=== PATIENT | female | born 1970 | race Two or more races ===

== ENCOUNTER 2017-06-14 17:44 | Emergency (ER) | payer OTHER ==
[2017-06-14] MEDS ORDERED: HYDROcodone/ACETAMIN 5-325 MG* 1 TAB PO ONE (20:27)
[2017-06-14] MEDS ORDERED: LORazepam INJ* 2 MG/ML 1 ML VIAL IV ONE (20:27)
[2017-06-14 21:18] LABS: Hematocrit 40 % (35-47); Hemoglobin 13.9 g/dl (12.0-16.0); Mean Corpuscular HGB Conc 34 g/dl (31-36); Mean Corpuscular Hemoglobin 30 pg (27-31); Mean Corpuscular Volume 88 fL (80-97); Mean Platelet Volume 7 um3 (7.4-10.4); Red Blood Count 4.61 10^6/ul (4.0-5.4); Red Cell Distribution Width 13 % (10.5-15); White Blood Count 9.4 10^3/ul (3.5-10.8)
[2017-06-14 22:09] VITALS: BP 162/76
[2017-06-15] LABS: Erythrocyte Sed Rate 12 mm/Hr (0-14)
--- NOTE | 2017-06-16 17:56 | ED ---
Raoul Cruz Thomas, scribed for Mumtaz Sheppard MD on 06/14/17 at 2038 . Headache - HPI Summary HPI Summary: The patient is a 46 y/o F presenting to the ED c/o episodes of headaches that last about an hour and have been present over the last three days. Her last headache episode began during triage and it has mostly resolved by time of examination. The headache is located on her bilateral temples. She says that sometimes she almost falls down secondary to the pain. She rates the pain of these headache episodes 5/10. The headache is aggravated by positional change and is alleviated by nothing. She has been treating the headaches with Excedrin Migraine, which she last took three hours ago. She additionally c/o nausea, photophobia, and blurry vision (during the headache episodes). She denies vomiting. She does not take any daily medication. She does not have a history of headaches. She is accompanied by her daughter who acts as an accounting associate for this exchange. Her PMD is Dr. Swanson. - History Of Current Complaint Chief Complaint: EDHeadache Stated Complaint: HEADACHE/N/LOSS OF VISION Time Seen by Provider: 06/14/17 20:14 Hx Obtained From: Patient, Family/Denture Waxer - daughter is present, who acts as an interpretere Onset/Duration: Started days ago - onset of episodes is 3 days ago, Still Present Timing: Intermittent, Lasting: - about an hour Location of Headache: Temporal - bilateral Aggravating Factor: Position Change Allevating Factors: Nothing Associated Signs And Symptoms: Nausea, Other (Noted In Comments) - Photophobia; NEGATIVE: vomiting - Allergies/Home Medications Allergies/Adverse Reactions: Allergies Allergy/AdvReac Type Severity Reaction Status Date / Time No Known Allergies Allergy Verified 04/30/15 19:03 PMH/Surg Hx/FS Hx/Imm Hx Previously Healthy: Yes Endocrine/Hematology History: Denies: Hx Diabetes Cardiovascular History: Denies: Hx Hypertension - Surgical History Surgery Procedure, Year, and Place: CHOLECYSTECTOMY - Immunization History Date of Tetanus Vaccine: unknown Infectious Disease History: No Infectious Disease History: Denies: Traveled Outside the [place] in Last 30 Days - Family History Known Family History: Negative: Hypertension, Diabetes - Social History Lives: With Family Alcohol Use: None Hx Substance Use: No Substance Use Type: Reports: None Hx Tobacco Use: No Smoking Status (MU): Never Smoked Tobacco Review of Systems Negative: Fever Positive: Photophobia, Blurred Vision - during episodes of headaches Positive: Nausea. Negative: Vomiting Positive: Headache - episodes of headaches All Other Systems Reviewed And Are Negative: Yes Physical Exam Triage Information Reviewed: Yes Vital Signs On Initial Exam: Initial Vitals Temp Pulse Resp BP Pulse Ox 97.3 F 72 18 158/81 99 06/14/17 17:54 06/14/17 17:54 06/14/17 17:54 06/14/17 17:54 06/14/17 17:54 Vital Signs Reviewed: Yes Appearance: Positive: Well-Appearing, No Pain Distress, Obese Skin: Positive: Warm, Skin Color Reflects Adequate Perfusion, Dry Head/Face: Positive: Normal Head/Face Inspection Eyes: Positive: Normal ENT: Positive: Normal ENT inspection Neck: Positive: Supple, Nontender Respiratory/Lung Sounds: Positive: Clear to Auscultation, Breath Sounds Present Cardiovascular: Positive: RRR Abdomen Description: Positive: Nontender, Soft Bowel Sounds: Positive: Present Musculoskeletal: Positive: Normal Neurological: Positive: Other - She is tender paracervically. There are no meningeal signs. There is mild tenderness to her temples bilaterally. No cords are palpated. Psychiatric: Positive: Normal, Affect/Mood Appropriate - Virgilio Coma Scale Coma Scale Total: 15 Diagnostics - Vital Signs Vital Signs Temp Pulse Resp BP Pulse Ox 06/14/17 18:35 98.7 F 72 18 181/71 98 06/14/17 17:54 97.3 F 72 18 158/81 99 - Laboratory Lab Results: Lab Results 06/14/17 06/14/17 Range/Units 21:03 21:03 WBC 9.4 (3.5-10.8) 10^3/ul RBC 4.61 (4.0-5.4) 10^6/ul Hgb 13.9 (12.0-16.0) g/dl Hct 40 (35-47) % MCV 88 (80-97) fL MCH 30 (27-31) pg MCHC 34 (31-36) g/dl RDW 13 (10.5-15) % Plt Count 306 (150-450) 10^3/ul MPV 7 L (7.4-10.4) um3 Neut % (Auto) 67.7 (38-83) % Lymph % (Auto) 24.9 L (25-47) % Scott % (Auto) 5.9 (1-9) % Eos % (Auto) 0.8 (0-6) % Baso % (Auto) 0.7 (0-2) % Absolute Neuts (auto) 6.3 (1.5-7.7) 10^3/ul Absolute Lymphs (auto) 2.3 (1.0-4.8) 10^3/ul Absolute Monos (auto) 0.6 (0-0.8) 10^3/ul Absolute Eos (auto) 0.1 (0-0.6) 10^3/ul Absolute Basos (auto) 0.1 (0-0.2) 10^3/ul Absolute Nucleated RBC 0 10^3/ul Nucleated RBC % 0 ESR 12 (0-14) mm/Hr Carbon Monoxide Screen < 4 (<4.0) % Result Diagrams: 06/14/17 21:03 Lab Statement: Any lab studies that have been ordered have been reviewed, and results considered in the medical decision making process. Headache Course/Dx - Course Course Of Treatment: Ms. Florian presented with intermittent MCCRAY's for a couple weeks. She improved with medications here and I think these are tension MCCRAY's and will treat her accordingly. - Diagnoses Provider Diagnoses: Tension headache Discharge - Discharge Plan Condition: Stable Disposition: HOME Prescriptions: LORazepam TAB(*) [Ativan 1 MG TAB (*)] 1 mg PO Q6H PRN #10 tab MDD 4 PRN Reason: Pain Patient Education Materials: Tension Headache (ED) Referrals: Rosa Swanson MD [Primary Care Provider] - 3 Days Additional Instructions: Follow up with your primary care provider in 2-3 days. Return to the emergency department for any new or worsening symptoms. The documentation as recorded by the Raoul good Thomas accurately reflects the service I personally performed and the decisions made by me, Mumtaz Sheppard MD.
== END 2017-06-14 22:14 | disposition home or self-care (01) ==
LOC: ED 17:44
DX: G44.209 Tension-type headache, unspecified, not intractable (principal); R11.0 Nausea; H53.149 Visual discomfort, unspecified; H53.8 Other visual disturbances
CPT/HCPCS: 36415; 82375; 85025; 85652; 96374; 99284; J2060

== ENCOUNTER 2017-06-15 11:39 | Emergency (ER) | payer OTHER ==
--- NOTE | 2017-06-15 12:22 | RAD ---
HISTORY: Headache with blurred vision COMPARISONS: None TECHNIQUE: Multiple contiguous axial CT scans were obtained of the head without intravenous contrast. FINDINGS: HEMORRHAGE/INFARCT: There is no hemorrhage or acute infarct. MASSES/SHIFT: There is no mass or shift. EXTRA-AXIAL SPACES: There are no extra-axial fluid collections. SULCI AND VENTRICLES: The sulci and ventricles are normal in size and position for the patient's stated age. CEREBRUM: There are no focal parenchymal abnormalities. BRAINSTEM: There are no focal parenchymal abnormalities. CEREBELLUM: There are no focal parenchymal abnormalities. VESSELS: The vessels are grossly normal. PARANASAL SINUSES: The paranasal sinuses are clear. ORBITS: The orbits are unremarkable. BONES AND SOFT TISSUE: No bone or soft tissue abnormalities are noted. OTHER: None IMPRESSION: NO ACUTE INTRACRANIAL PATHOLOGY.
--- NOTE | 2017-06-15 13:53 | UC ---
Head Injury HPI - HPI Summary HPI Summary: 3 days of headache had some nausea and vomiting at home---had continued head ache this morning she called pcp who advised here to have a ct scan - History Of Current Complaint Chief Complaint: EDHeadache Stated Complaint: HEADACHE Time Seen by Provider: 06/15/17 13:25 Hx Obtained From: Patient ?: No Onset/Duration: Gradual Onset - waxing and waneing, Lasting Days - 3 Severity Currently: Moderate Severity Initially: Moderate Pain Intensity: 5 Pain Scale Used: 0-10 Numeric Character: Throbbing Aggravating Factor(s): Nothing Alleviating Factor(s): Other - Ativan and hydrodcodone Associated Signs And Symptoms: Positive: Nausea, Vomiting - Allergies/Home Medications Allergies/Adverse Reactions: Allergies Allergy/AdvReac Type Severity Reaction Status Date / Time No Known Allergies Allergy Verified 04/30/15 19:03 PMH/Surg Hx/FS Hx/Imm Hx Previously Healthy: No - Surgical History Surgical History: Yes Surgery Procedure, Year, and Place: CHOOLECYSTECTOMY - Family History Known Family History: Positive: None - Social History Occupation: Unemployed Lives: With Family Alcohol Use: None Substance Use Type: None Smoking Status (MU): Never Smoked Tobacco Review of Systems Constitutional: Negative Skin: Negative Eyes: Negative ENT: Negative Respiratory: Negative Cardiovascular: Negative Gastrointestinal: Vomiting, Nausea Genitourinary: Negative Motor: Negative Neurovascular: Negative Musculoskeletal: Negative Neurological: Headache - both sides of head Psychological: Negative Is Patient Immunocompromised?: No All Other Systems Reviewed And Are Negative: Yes Physical Exam Triage Information Reviewed: Yes Appearance: Well-Appearing, Well-Nourished, Pain Distress - mild Vital Signs: Initial Vital Signs Temp 97.8 F 06/15/17 11:44 Pulse 69 06/15/17 11:44 Resp 15 06/15/17 11:44 BP 141/80 06/15/17 11:44 Pulse Ox 99 06/15/17 11:44 Vital Signs Reviewed: Yes Eye Exam: Normal Eyes: Positive: Conjunctiva Clear, Other: - perrla, eomi ENT Exam: Normal ENT: Positive: Normal ENT inspection, Hearing grossly normal, Pharynx normal, TMs normal. Negative: Nasal congestion, Nasal drainage, Trismus, Muffled/ hoarse voice Dental Exam: Normal Neck exam: Normal Neck: Positive: Supple, Nontender, No Lymphadenopathy Respiratory Exam: Normal Respiratory: Positive: Chest non-tender, Lungs clear, Normal breath sounds, No respiratory distress, No accessory muscle use Cardiovascular Exam: Normal Cardiovascular: Positive: RRR, No Murmur, Pulses Normal, Brisk Capillary Refill Abdominal Exam: Normal Abdomen Description: Positive: Nontender, No Organomegaly, Soft Bowel Sounds: Positive: Present Musculoskeletal Exam: Normal Musculoskeletal: Positive: Strength Intact, ROM Intact, No Edema Neurological Exam: Normal Neurological: Positive: Alert, Muscle Tone Normal Psychological Exam: Normal Psychological: Positive: Normal Response To Family Skin Exam: Normal Diagnostics - Laboratory Diagnostic Studies Completed/Ordered: CT and CTA Negative Re-Evaluation - Re-Evaluation First Eval Change: Improved - Patient slept soundly and was easy to arrouse for reassessment while family was gone this afternoon Head Injury Course/Dx - Course Course Of Treatment: zofran, rest, nsaids, prn ativan follow with Dr. Carter - Differential Dx/Diagnosis Provider Diagnoses: Tension Headache - Physician Notification/Consults Discussed Patient Care With: Cornel Saldivar Discharge - Discharge Plan Condition: Stable Disposition: HOME Prescriptions: Ondansetron ODT TAB* [Zofran 4 MG Odt TAB*] 4 mg PO Q6H PRN #10 tab.odt PRN Reason: nausea/vomiting Patient Education Materials: Tension Headache (ED) Referrals: Rosa Swanson MD [Primary Care Provider] - 2 Days
[2017-06-15] MEDS ORDERED: NS 0.9% 1000 ML* 1,000 ML IV ONE (14:05)
[2017-06-15] MEDS ORDERED: Ondansetron INJ* 2 MG/ML VIAL IV ONE (14:06)
[2017-06-15] MEDS ORDERED: Ketorolac INJ* 30 MG/ML 1 ML VIAL IV PUSH ONE (14:06)
[2017-06-15 15:38] LABS: Hematocrit 39 % (35-47); Hemoglobin 13.2 g/dl (12.0-16.0); Mean Corpuscular HGB Conc 34 g/dl (31-36); Mean Corpuscular Hemoglobin 30 pg (27-31); Mean Corpuscular Volume 88 fL (80-97); Mean Platelet Volume 7 um3 (7.4-10.4); Red Cell Distribution Width 13 % (10.5-15); White Blood Count 7.7 10^3/ul (3.5-10.8)
[2017-06-15 15:56] LABS: Albumin 3.7 g/dL (3.2-5.2); C Reactive Protein 2.93 mg/L (< 5.00); Calcium 8.9 mg/dL (8.6-10.3); EGFR African American 170.1 (>60); EGFR Non-African American 132.2 (>60); Globulin 3.7 g/dL (2-4); Potassium 3.5 mmol/L (3.5-5.0); Total Bilirubin 0.5 mg/dL (0.2-1.0); Total Protein 7.4 g/dL (6.4-8.9)
[2017-06-15] MEDS ORDERED: Iohexol 350* (CONTRAST) 500 ML MDV IV ONE (17:26)
--- NOTE | 2017-06-15 18:07 | RAD ---
INDICATION: Headache. COMPARISON: Noncontrast head CT of the same date. TECHNIQUE: Multidetector CT images were obtained from the skull base to the vertex of the head with 60 mL Omnipaque 350 IV contrast. Arterial phase of enhancement. Multiplanar reformation including maximum intensity projection. 3-D arterial volume rendering. Stenosis estimations based on denominator of distal arterial diameter. HEAD ANGIOGRAM REPORT: Unremarkable intracranial internal carotid arteries as well as the M1 and M2 segments of the middle cerebral arteries and the A1 and A2 segments of the anterior cerebral arteries. Patent anterior communicating artery. Codominant patent vertebral arteries both contribute to the basilar artery. Unremarkable basilar artery and cerebellar artery origins. Patent bilateral posterior cerebral arteries are supplied primarily by the posterior circulation with normal variant hypoplastic posterior communicating arteries. No intracranial aneurysm or vascular malformation evident. No arterial phase enhancing lesions evident. IMPRESSION: No large vessel intracranial arterial occlusion, stenosis, dissection, or aneurysm. Negative CT angiogram of the head. CPT II: CPT II Codes: 3100F
[2017-06-15 18:41] VITALS: BP 126/74
== END 2017-06-15 18:40 | disposition home or self-care (01) ==
LOC: ED 11:39
DX: G44.209 Tension-type headache, unspecified, not intractable (principal); R11.2 Nausea with vomiting, unspecified; Z90.49 Acquired absence of other specified parts of digestive tract
CPT/HCPCS: 36415; 70450; 70496; 80053; 85025; 86140; 96361; 96374; 96375; 99283; J1885; J2405; Q9967

== ENCOUNTER 2017-06-28 20:11 | Inpatient (IN) | payer OTHER ==
[2017-06-28] MEDS ORDERED: Al Hydrox/Mg Hydrox/Simet LIQ* 30 ML UDC PO ONE (21:46)
[2017-06-28] MEDS ORDERED: SCOP/HYOS/ATR/PB(NF) 10 ML UDC PO ONE (21:47)
[2017-06-28] MEDS ORDERED: Famotidine TAB* 20 MG PO ONE (21:49)
[2017-06-28 22:05] LABS: Hematocrit 40 % (35-47); Hemoglobin 13.5 g/dl (12.0-16.0); Mean Corpuscular HGB Conc 34 g/dl (31-36); Mean Corpuscular Hemoglobin 30 pg (27-31); Mean Corpuscular Volume 87 fL (80-97); Mean Platelet Volume 7 um3 (7.4-10.4); Red Blood Count 4.56 10^6/ul (4.0-5.4); Red Cell Distribution Width 13 % (10.5-15); White Blood Count 26.2 10^3/ul (3.5-10.8)
[2017-06-28 22:11] LABS: Add Diff/Slide Review? Slide Review Added; Comments Flag Yes
[2017-06-28 22:48] LABS: ALT 18 U/L (7-52); AST 16 U/L (13-39); Albumin 3.8 g/dL (3.2-5.2); Alkaline Phosphatase 110 U/L (34-104); Anion Gap 9 mmol/L (2-11); BUN/Creatinine Ratio 18.4 (8-20); Blood Urea Nitrogen 9 mg/dL (6-24); C Reactive Protein 57.42 mg/L (< 5.00); CO2 Carbon Dioxide 25 mmol/L (22-32); Calcium 9.4 mg/dL (8.6-10.3); Chloride 102 mmol/L (101-111); EGFR African American 174.1 (>60); EGFR Non-African American 135.4 (>60); Globulin 3.8 g/dL (2-4); Glucose 174 mg/dL (70-100); Lipase < 10 U/L (11.0-82.0); Magnesium 2.5 mg/dL (1.9-2.7); Potassium 3.7 mmol/L (3.5-5.0); Sodium 136 mmol/L (133-145); Total Protein 7.6 g/dL (6.4-8.9)
[2017-06-28] MEDS ORDERED: Lidocaine 2% VISCOUS* 15 ML UDC ONE (23:03)
[2017-06-28] MEDS ORDERED: Lidocaine 2% VISCOUS* 15 ML UDC PO ONE (23:10)
[2017-06-28 23:31] LABS: Urine Bacteria 1+ (Absent); Urine Bilirubin Negative (Negative); Urine Glucose Negative (Negative); Urine Nitrite Negative (Negative)
[2017-06-28] MEDS ORDERED: Morphine INJ* 4 MG/ML 1 ML CARPUJECT IV ONE (23:41)
[2017-06-28] MEDS ORDERED: cefTRIAXone(*) 1 GM in NS 0.9% 50 ML* 50 ML IVPB ONE (23:41)
[2017-06-29] MEDS ORDERED: Iohexol 300* (CONTRAST) 10 ML SDV IV ONE (02:51)
[2017-06-29] MEDS ORDERED: Morphine INJ* 4 MG/ML 1 ML CARPUJECT IV ONE (05:14)
--- NOTE | 2017-06-29 07:36 | RAD ---
INDICATION: Shortness of breath and abdominal pain COMPARISON: Chest x-ray April 30, 2015 TECHNIQUE: Single AP view of the chest and 2 view radiograph of the abdomen were obtained. FINDINGS: The heart and mediastinum exhibit normal size and contour. There is mild cardiomegaly relative to the prior chest x-ray. The pulmonary vasculature looks engorged and mildly indistinct. There is no large focal or lobar consolidation. There is no definite costophrenic angle blunting. The gas and stool pattern is normal overlying the abdomen. There is no evidence of free air. Surgical clips at the gallbladder fossa are consistent with a history of cholecystectomy. Visualized bones are normal for the patient's age. IMPRESSION: 1. IN THE CORRECT CLINICAL SETTING CHEST X-RAY FINDINGS COULD BE COMPATIBLE WITH CARDIOGENIC PULMONARY EDEMA. 2. NO ACUTE ABDOMINAL ABNORMALITY.
--- NOTE | 2017-06-29 08:19 | RAD ---
CLINICAL HISTORY: Right lower quadrant pain and emesis. Relevant surgical history includes cholecystectomy. COMPARISON: None TECHNIQUE: Multiple contiguous axial CT scans were obtained of the abdomen and pelvis after the administration of intravenous contrast. Coronal and sagittal multiplanar reformations are submitted for review. Prior to CT imaging of the abdomen the patient received 100 mL of Omnipaque 300. Approximately 90 minutes later the patient underwent CT of the pelvis. FINDINGS: VISUALIZED LUNG BASES: The visualized lung bases are grossly clear. There is no pleural effusion. ABDOMEN: The liver, spleen, pancreas and adrenal glands are grossly normal in appearance. The gallbladder is surgically absent. The kidneys are normal in appearance without focal mass, calcification or signs of hydronephrosis. The oral contrast has progressed as far as the descending colon on the abdominal CT and the rectum on the pelvic CT.. The small and large bowel is not distended. There is mild thickening of the terminal ileum up to the junction with the cecum measuring up to 5 mm in wall thickness. There is inflammatory changes at the base of the cecum including infiltration of the fat, trace fluid and a 2.2 x 2.8 cm soft tissue nodule just anterior to the psoas muscle. This latter finding may be the right ovary. In addition there are scattered top normal lymph nodes along the mesenteric root of the right lower quadrant. The appendix is likely identified measuring 5 mm in diameter and not specifically exhibiting signs of appendicitis. There is no gross retroperitoneal lymphadenopathy. The abdominal aorta is normal in course and diameter. The uterus is surgically absent. In the left upper abdomen there is a fluid density structure measuring 2.7 cm possibly the left ovary with a follicle. There are no sinister bone lesions in the visualized bones. IMPRESSION: 1. There is focal inflammatory change at the base of the cecum with mild wall thickening of the terminal ileum. The appendix appears normal. An infectious or inflammatory terminal ileitis is favored with epiploic appendicitis considered less likely. 2. Additional chronic, degenerative and postsurgical changes described in body the report. 3. The CT of the abdomen was acquired at [address] of the pelvis was acquired at 0418 hours.
--- NOTE | 2017-06-29 09:32 | ED ---
Mario Cruz Rebecca, scribed for Nicho Barber MD on 06/28/17 at 2133 . Abdominal Pain/Female - HPI Summary HPI Summary: Pt is a 46 y/o F who presents to ED c/o diffuse abdominal pain. Pain began yesterday and has gradually worsened. Currently, pain is moderate, ranked 4/10. Sx aggravated and alleviated by nothing. Additionally c/o MCCRAY, dysuria, increased urinary frequency, vomiting and constipation. Constipation began 3 days ago and she vomited 3x earlier today. She has been taking Tylenol to treat the MCCRAY. Notes she has not eaten in 3 days. PSHx cholecystectomy due to gallstones. - History of Current Complaint Chief Complaint: EDAbdPain Stated Complaint: ABD PAIN Hx Obtained From: Patient Onset/Duration: Lasting Days - 2 days, Still Present Severity Currently: Moderate Pain Intensity: 4 Pain Scale Used: 0-10 Numeric Location: Diffuse Radiates: No Character: Burning Alleviating Factor(s): Nothing Associated Signs and Symptoms: Positive: Constipation, Vomiting Allergies/Adverse Reactions: Allergies Allergy/AdvReac Type Severity Reaction Status Date / Time No Known Allergies Allergy Verified 04/30/15 19:03 PMH/Surg Hx/FS Hx/Imm Hx Cardiovascular History: Reports: Hx Hypertension GI History: Reports: Hx Gastroesophageal Reflux Disease History: Reports: Hx Kidney Stones - Surgical History Surgery Procedure, Year, and Place: CHOOLECYSTECTOMY - Immunization History Date of Tetanus Vaccine: unknown Infectious Disease History: No Infectious Disease History: Denies: Traveled Outside the [place] in Last 30 Days - Family History Known Family History: Positive: Other - [place] - Social History Alcohol Use: None Hx Substance Use: No Substance Use Type: Reports: None Hx Tobacco Use: No Smoking Status (MU): Never Smoked Tobacco Review of Systems Positive: Abdominal Pain, Vomiting, Other - Constipation Positive: dysuria, frequency Positive: Headache All Other Systems Reviewed And Are Negative: Yes Physical Exam - Summary Physical Exam Summary: Appearance: Well-appearing, Well-nourished Skin: Warm Eyes: Normal ENT: Normal, moist mucous membranes Neck: Supple, nontender Respiratory: Clear to auscultation Cardiovascular: Normal Abdomen: Soft, generalized abdominal tenderness without rebound and guarding Bowel: Present Musculoskeletal: Normal, Strength/ROM Intact Neurological: Normal, Alert, Oriented to Person Psychiatric: Normal Triage Information Reviewed: Yes Vital Signs On Initial Exam: Initial Vitals Temp Pulse Resp BP Pulse Ox 99.1 F 80 16 129/66 97 06/28/17 20:22 06/28/17 20:22 06/28/17 20:22 06/28/17 20:22 06/28/17 20:22 Vital Signs Reviewed: Yes Diagnostics - Vital Signs Vital Signs Temp Pulse Resp BP Pulse Ox 06/28/17 20:22 99.1 F 80 16 129/66 97 - Laboratory Lab Results: Lab Results 06/28/17 06/28/17 06/28/17 Range/Units 21:59 21:59 21:59 WBC 26.2 H (3.5-10.8) 10^3/ul RBC 4.56 (4.0-5.4) 10^6/ul Hgb 13.5 (12.0-16.0) g/dl Hct 40 (35-47) % MCV 87 (80-97) fL MCH 30 (27-31) pg MCHC 34 (31-36) g/dl RDW 13 (10.5-15) % Plt Count 274 (150-450) 10^3/ul MPV 7 L (7.4-10.4) um3 Neut % (Auto) 89.8 H (38-83) % Lymph % (Auto) 5.7 L (25-47) % Person % (Auto) 4.3 (1-9) % Eos % (Auto) 0 (0-6) % Baso % (Auto) 0.2 (0-2) % Absolute Neuts (auto) 23.6 H (1.5-7.7) 10^3/ul Absolute Lymphs (auto) 1.5 (1.0-4.8) 10^3/ul Absolute Monos (auto) 1.1 H (0-0.8) 10^3/ul Absolute Eos (auto) 0 (0-0.6) 10^3/ul Absolute Basos (auto) 0.1 (0-0.2) 10^3/ul Absolute Nucleated RBC 0 10^3/ul Nucleated RBC % 0 INR (Anticoag Therapy) 1.25 H (0.89-1.11) APTT 28.4 (26.0-36.3) seconds Sodium 136 (133-145) mmol/L Potassium 3.7 (3.5-5.0) mmol/L Chloride 102 (101-111) mmol/L Carbon Dioxide 25 (22-32) mmol/L Anion Gap 9 (2-11) mmol/L BUN 9 (6-24) mg/dL Creatinine 0.49 L (0.51-0.95) mg/dL Est GFR ( Amer) 174.1 (>60) Est GFR (Non-Af Amer) 135.4 (>60) BUN/Creatinine Ratio 18.4 (8-20) Glucose 174 H (70-100) mg/dL Calcium 9.4 (8.6-10.3) mg/dL Magnesium 2.5 (1.9-2.7) mg/dL Total Bilirubin 0.60 (0.2-1.0) mg/dL AST 16 (13-39) U/L ALT 18 (7-52) U/L Alkaline Phosphatase 110 H (34-104) U/L C-Reactive Protein 57.42 H (< 5.00) mg/L Total Protein 7.6 (6.4-8.9) g/dL Albumin 3.8 (3.2-5.2) g/dL Globulin 3.8 (2-4) g/dL Albumin/Globulin Ratio 1.0 (1-3) Lipase < 10 L (11.0-82.0) U/L Beta HCG, Quant 1.58 mIU/mL Urine Color Urine Appearance Urine pH (5-9) Ur Specific [place] (1.010-1.030) Urine Protein (Negative) Urine Ketones (Negative) Urine Blood (Negative) Urine Nitrate (Negative) Urine Bilirubin (Negative) Urine Urobilinogen (Negative) Ur Leukocyte Esterase (Negative) Urine WBC (Auto) (Absent) Urine RBC (Auto) (Absent) Ur Squamous Epith Cells (Absent) Urine Bacteria (Absent) Urine Glucose (Negative) 06/28/ Range/Units 22:50 WBC (3.5-10.8) 10^3/ul RBC (4.0-5.4) 10^6/ul Hgb (12.0-16.0) g/dl Hct (35-47) % MCV (80-97) fL MCH (27-31) pg MCHC (31-36) g/dl RDW (10.5-15) % Plt Count (150-450) 10^3/ul MPV (7.4-10.4) um3 Neut % (Auto) (38-83) % Lymph % (Auto) (25-47) % Person % (Auto) (1-9) % Eos % (Auto) (0-6) % Baso % (Auto) (0-2) % Absolute Neuts (auto) (1.5-7.7) 10^3/ul Absolute Lymphs (auto) (1.0-4.8) 10^3/ul Absolute Monos (auto) (0-0.8) 10^3/ul Absolute Eos (auto) (0-0.6) 10^3/ul Absolute Basos (auto) (0-0.2) 10^3/ul Absolute Nucleated RBC 10^3/ul Nucleated RBC % INR (Anticoag Therapy) (0.89-1.11) APTT (26.0-36.3) seconds Sodium (133-145) mmol/L Potassium (3.5-5.0) mmol/L Chloride (101-111) mmol/L Carbon Dioxide (22-32) mmol/L Anion Gap (2-11) mmol/L BUN (6-24) mg/dL Creatinine (0.51-0.95) mg/dL Est GFR ( Amer) (>60) Est GFR (Non-Af Amer) (>60) BUN/Creatinine Ratio (8-20) Glucose (70-100) mg/dL Calcium (8.6-10.3) mg/dL Magnesium (1.9-2.7) mg/dL Total Bilirubin (0.2-1.0) mg/dL AST (13-39) U/L ALT (7-52) U/L Alkaline Phosphatase (34-104) U/L C-Reactive Protein (< 5.00) mg/L Total Protein (6.4-8.9) g/dL Albumin (3.2-5.2) g/dL Globulin (2-4) g/dL Albumin/Globulin Ratio (1-3) Lipase (11.0-82.0) U/L Beta HCG, Quant mIU/mL Urine Color Yellow Urine Appearance Cloudy Urine pH 7.0 (5-9) Ur Specific [place] 1.011 (1.010-1.030) Urine Protein Negative (Negative) Urine Ketones Negative (Negative) Urine Blood 1+ H (Negative) Urine Nitrate Negative (Negative) Urine Bilirubin Negative (Negative) Urine Urobilinogen Negative (Negative) Ur Leukocyte Esterase 3+ H (Negative) Urine WBC (Auto) 2+(11-20/hpf) H (Absent) Urine RBC (Auto) 2+(6-10/hpf) H (Absent) Ur Squamous Epith Cells Present H (Absent) Urine Bacteria 1+ H (Absent) Urine Glucose Negative (Negative) Result Diagrams: 06/28/17 21:59 06/28/17 21:59 Lab Statement: Any lab studies that have been ordered have been reviewed, and results considered in the medical decision making process. - Radiology CXR Xray Interpretation: Positive (See Comments) - Diffuse congestion, no consolidation. Radiology Interpretation Completed By: ED Physician Abd XR Xray Interpretation: No Acute Changes - Normal stool pattern, no evidence of obstruction, no dilated loops of bowel Radiology Interpretation Completed By: ED Physician - CT CT Abd/Pel CT Interpretation: Positive (See Comments) - Right lower quadrant inflammation. Appendicitis cannot be excluded but the pelvis is incompletely imaged. Persistent 3 x 1 cm left ovarian cyst. Consider further CT images of the pelvis. ED physician reviewed radiology report and agrees. CT Interpretation Completed By: Radiologist CT Abd/Pel #2 CT Interpretation: Positive (See Comments) - Appendicitis considered unlikely. Primary cecal and terminal ileal inflammation from infection or Crohn's disease , versus epiploic appendagitis is more likely. ED physician reviewed radiology report and agrees. CT Interpretation Completed By: Radiologist Re-Evaluation - Re-Evaluation First Eval Re-Evaluation Time: 02:19 Change: Unchanged Comment: Pt continues to be tender to palpation. Abdominal Pain Fem Course/Dx - Course Course Of Treatment: pt continues to have pain despite treatment in ED, admitted for further treatment, surgical consultation appreciated. - Diagnoses Provider Diagnoses: Ileitis - Provider Notifications Discussed Care Of Patient With: Rizwan Dan Time Discussed With Above Provider: 05:20 Instructed by Provider To: Other - Advised consult with surgery. Discussed care of pt with Dr. Bahena at 0524 who will look at the CT and call back. Discussed care of pt with Dr. Bahena at 0544 who suggested admission with surgical consultation and Abx on board. Discharge - Discharge Plan Condition: Stable Disposition: ADMITTED TO [facility] documentation as recorded by the Mario good Rebecca accurately reflects the service I personally performed and the decisions made by me, Nicho Barber MD.
[2017-06-29] MEDS ORDERED: Zosyn per Pharmacy* NOTE FOLLOW UP PRN (10:59)
[2017-06-29] MEDS ORDERED: ZOSYN 3.375 GM x ONE DOSE over 30 miuntes IVPB ×2 (11:00)
[2017-06-29] MEDS ORDERED: metroNIDAZOLE IV 500 MG/100ML* 500 MG/100 ML BAG IVPB SCH (11:00)
[2017-06-29] MEDS ORDERED: Ciprofloxacin 400MG IVPREMIX(* 400 MG/200 ML BAG IVPB SCH (11:00)
[2017-06-29] MEDS: Acetaminophen TAB* 325 MG PO PRN ×2 (11:05→20:00)
[2017-06-29] MEDS: Ondansetron INJ* 2 MG/ML VIAL IV PRN (12:06)
[2017-06-29] MEDS: NS 0.9% 1000 ML* 1,000 ML IV SCH ×3 (12:15→18:05)
[2017-06-29] MEDS ORDERED: NS 0.9% 1000 ML* 1,000 ML IV ONE ×2 (12:52→16:44)
[2017-06-29] MEDS ORDERED: Morphine INJ* 2 MG/ML 1 ML SYRINGE (TWO MG - NEW SYRINGE VERSION) IV PRN (12:52)
[2017-06-29] MEDS ORDERED: Acetaminophen TAB* 325 MG PO ONE (13:29)
[2017-06-29] MEDS ORDERED: Acetaminophen SUPP* 650 MG SUPP PR PRN (13:29)
[2017-06-29] MEDS: Heparin VIAL(*) 5000 UNITS/ML VIAL (FIVE THOUSAND) SUBCUT SCH ×2 (14:59→21:08)
[2017-06-29] MEDS: ZOSYN 3.375 GM Q8H per EXTENDED INFUSION IVPB SCH ×2 (16:36)
--- NOTE | 2017-06-29 17:36 | PN ---
Progress Note - Progress Note Date of Service: 06/29/17 Note: Brief Surgery Note: (full consult dictated) Patient seen with and examined by Dr. Bahena. History is somewhat limited by language barrier. Patient reports a 2-3 d hx of steady RLQ abd pain w/ assoc N& V. She has not eaten any solid food in the past 2-3 d. She has had a small BM this a.m. She admits to fever and chills. She has an associated headache which she also had on 06/14 (though at that time had no abd sx). She is s/p lap ward. PE: mod obese female in mild distress; uncomfortable to move. Abd: moderately severe, diffuse, RLQ tenderness w/o rebound, guarding, or rigidity. No palp mass. Labs: WBC 26 w/ L shift; glucose 174; CRP 57; Lactic acid 1.9; U/A noted CT A&P w/contrast: mild thickening of the terminal ileum and cecum most c/w infectious or inflammatory etiology; likely normal appendix, 5 mm w/o inflammatory changes. Imp: Terminal ileitis; unlikely acute appendicitis or acute surgical abdomen P: hospitalist admission for NPO, IVF, abx. Repeat labs; Serial surgical exams.
--- NOTE | 2017-06-29 18:57 | ED ---
I, Sandeep Silveira, scribed for Cornel Saldivar MD on 06/29/17 at 1723 . Progress - Progress Note Progress Note: The patient is a sign out from Dr. Barber because he requests that I consult with surgery. Mr. Armando Diaz, a PA from Dr. Law office, came to evaluate the patient and he does not think that the patient has appendicitis. Santos Joe and Dr. Bahena suspect distal ileitis. Therefore, they recommend admission to the hospitalist services. I discussed the case with Dr. Reyes, hospitalist, who will admit the patient for further workup and management. The patient is hemodynamically stable and alert and oriented x 3. Course/Dx - Diagnoses Provider Diagnoses: Abdominal pain The documentation as recorded by the Raoul good Thomas accurately reflects the service I personally performed and the decisions made by me, Cornel Saldivar MD.
--- NOTE | 2017-06-29 18:58 | HP ---
HISTORY AND PHYSICAL: DATE OF ADMISSION: 06/29/17 PRIMARY CARE PROVIDER: None. ATTENDING PHYSICIAN WHILE IN THE HOSPITAL: Dr. Richard Reyes* (report being dictated by Rashad Fenton NP). CHIEF COMPLAINT: 1. Right lower quadrant abdominal pain. 2. Chills. HISTORY OF PRESENT ILLNESS: Ms. Florian is a 46-year-old female patient, she has a history of GERD and history of nephrolithiasis, who really does not take many medications with exception of p.r.n. ibuprofen. She came into the ER last night with complaints of having chills, in addition to this having pain in the right lower quadrant. It has been constant for the last 3 days. It has been getting progressively worse with associated constipation, in addition to this, also having associated nausea with vomiting and decreased appetite. She describes the pain as a sharp, stabbing, intense pain. She says in addition to this, she has also been complaining of having a headache as well. It is not the worst headache of her life, but that she says that the abdominal pain is much worse than the headache. She came in, was evaluated in the ED for this. She denied having any chest pain. She says the pain is not worse or any better with food. She says that she has not had any blood in the stool or had any blood in the vomit. She denies any dysuria or frequency. The patient came into our ER, was evaluated, ultimately it was noted that she appeared to have a possible terminal ileitis or a colitis near the cecum. In addition to this, was also found to have a UTI and white count was 26,000, so we were asked to evaluate for admission. PAST MEDICAL HISTORY: Significant for: 1. GERD. 2. Nephrolithiasis. PAST SURGICAL HISTORY: She has had: 1. Hysterectomy. 2. . 3. Laparoscopic cholecystectomy. MEDICATIONS: Her home meds again include ibuprofen 1 tablet every 4 to 6 hours as needed. ALLERGIES TO MEDICATIONS: She says ASPIRIN causes hives. FAMILY HISTORY: Mother is still alive at the age of 97. Father at a young age, she says from cirrhosis due to alcoholism. SOCIAL HISTORY: She does not smoke. She does not drink. Surrogate decision maker would be her daughter. REVIEW OF SYSTEMS: There is no documented fever here. She admits to having subjective chills and fevers. There is no double vision or ear discharge. She denied having any rhinorrhea. No sore throat. No thyroid enlargement. Denies having any chest pain. There was no orthopnea. There is no nocturnal dyspnea. She does admit to having abdominal pain per my HPI. She does admit to having nausea and vomiting, and again no dysuria or frequency. She denied any loss of consciousness or seizures. No pruritus and no skin ulcerations. Review of all 14 systems completed, all others negative. PHYSICAL EXAMINATION GENERAL: At this time, Ms. Florian is a 46-year-old female patient. She is sitting in the hospital bed. She does not appear to be in any acute distress. VITAL SIGNS: Blood pressure 95/45, pulse 78, respirations were 18, her O2 saturations were 97%, temperature 99.2 HEENT: Head: Atraumatic. Eyes: EOMs intact. Sclerae are anicteric, not pale. Throat: Oral mucosa appears to be dry. No oropharyngeal erythema. NECK: Supple. LUNGS: Clear to auscultation bilaterally. No wheezes, rales, or rhonchi. HEART: Sounds S1 and S2. Regular rate and rhythm. No murmurs, rubs, or gallops. ABDOMEN: Soft and flat. There was tenderness in the right lower quadrant. Bowel sounds present. EXTREMITIES: Pulses are 2+ throughout. No peripheral edema. Moving all 4 extremities with 5/5 strength. NEUROLOGIC: The patient is awake, alert, and oriented x3. Tongue midline. Straight Line Edger equal. No gross focal deficits. SKIN: Intact. DIAGNOSTIC STUDIES/LAB DATA: WBC 26.2, RBC of 4.56, hemoglobin 13.5, hematocrit of 40, platelet count of 274. INR was 1.25, PTT of 28.4. Sodium 136 , potassium 3.7, chloride 102, bicarb 25, BUN 9, creatinine 0.49, glucose 174, her calcium was 9.4, total mag 2.5. Total bili 0.6, AST , ALT 18, alk phos 110. Albumin is 3.8. Lipase negative. Beta HCG negative. Urine showed 1 + blood, 3+ leukocyte esterase, 2+ wbc's, 1+ bacteria, 2+ rbc's. The patient did have an abdominal and pelvis CT scan obtained today, impression : There is focal inflammatory change at the base of the cecum with mild wall thickening of the terminal ileum, the appendix appears normal, an infectious or inflammatory terminal ileitis is favored with epiploic appendicitis considered less likely. She did have a chest x-ray obtained today which revealed in the correct clinical setting the chest x-ray could be compatible with cardiogenic pulmonary edema. Abdominal x-ray was obtained today, no acute abdominal abnormality. Old medical records were reviewed. ASSESSMENT AND PLAN: Ms. Florian is a 46-year-old female patient coming into the ED today, again with complaints of abdominal discomfort. On evaluation, found to have what appeared to be terminal ileitis versus again cholangitis near the cecum. We were asked to evaluate in consult. She will be admitted under observation status for: 1. Colitis and terminal ileitis. At this point, again she has a white count of 26,000, which makes me believe this to be most likely infectious. My plan would be to go ahead and put her on clear liquid diet. I am going to check blood cultures, recheck 2 lactate as well, clear liquid diet, place her on Zosyn , hydrate her. We will give a liter of fluid wide open right now and then normal saline at an existing rate of 100 an hour and we will control her pain with morphine and Tylenol. She was evaluated in the ED by Surgery. We will defer to their report for details, ultimately it was felt this was not appendicitis. So, at this point, we will go ahead and treat with antibiotics and we will continue to follow. At some point, when this is cleared up, she may need further followup with GI for direct visualization. 2. Gastroesophageal reflux disease: She can follow with her primary. 3. DVT prophylaxis. She is moderate risk, place her on heparin subcu. 4. Code status. She is full code. 5. Fluids, electrolytes, and nutrition. Clear liquid diet. TIME SPENT: On the admission was 60 minutes, greater than half the time was spent [id number] with the patient obtaining my history and physical; the other half the time was spent going over the plan of care with the patient and implementing the plan of care. I did discuss the plan of care with my attending, Dr. Reyes; he is in agreement. RASHAD FENTON, LOBO [id number]/[facility] #: [id number] CARLENE
[2017-06-29] MEDS: HYDROmorphone INJ* 1 MG/ML CARPUJECT SYRINGE IV PRN (23:07)
--- NOTE | 2017-06-30 00:03 | CONS ---
CC: Dr. Swanson at [facility]* SURGICAL CONSULT NOTE: DATE OF CONSULT: 06/29/17 ATTENDING SURGEON: Rom Bahena MD CHIEF COMPLAINT: Abdominal pain. HISTORY OF PRESENT ILLNESS: This is a 46-year-old generally healthy female, who speaks limited [place] Islander, therefore, history is somewhat limited as I did not have an rooming house operator available. The patient relates that she has had steady right lower quadrant abdominal pain for the past 2 to 3 days accompanied by nausea and vomiting. The pain began and has persisted in the right lower quadrant without significant radiation. She vomited multiple times at home and once or twice here in the ED. She also admits to fever and chills as well as total body aches and headache. She did have a small bowel movement here in the ED since admission. She has not eaten any solid foods for the past 2 to 3 days. She has not had any similar prior episodes. She is status post laparoscopic cholecystectomy in 2011 and additional surgeries as noted below. She denies dysuria or increased frequency. PAST MEDICAL HISTORY: No chronic or active medical problems. She is obese. She was seen in the ED on 06/14/17 for severe headache, but without any abdominal or GI symptoms at that time. Her workup was unremarkable. PAST SURGICAL HISTORY: Previous surgeries include laparoscopic cholecystectomy , C- section x2, subtotal hysterectomy (she still has her ovaries) for benign disease. CURRENT MEDICATIONS: Ibuprofen p.r.n. for her headaches. She takes no regular prescription medications. DRUG ALLERGIES: ASPIRIN (rash). FAMILY HISTORY: Not obtained. SOCIAL HISTORY: The patient is . She has 3 children. She is a homemaker. She denies use of tobacco or alcohol or illicit drugs. REVIEW OF SYSTEMS: General: No recent constitutional symptoms or acute illnesses other than described in the HPI. Cardiovascular: She did see Dr. Pineda for a period of approximately 2 years, but then was discharged. She states that at that time her blood pressure was elevated, but she has not needed maintenance medication for blood pressure management. No chest pain or palpitations. Respiratory: No chronic cough or shortness of breath. No history of asthma. GI: As above per HPI. No additions : No additions. COMPANY LAUNDRY WORKER: Not obtained. PHYSICAL EXAM: Vital Signs: Height 4 feet 5 inches, weight 180 pounds. Temperature 99.2, blood pressure 91/39 ranging to 129/66, pulse 80, room air saturation 91% to 97%. General: Well-nourished obese female, in mild-to- moderate distress, appeared uncomfortable in the ED stretcher. Skin: Warm and dry. No suspicious rashes or lesions. HEENT: Pupils equal, round, reactive. EOMs intact. No conjunctival pallor or scleral icterus. Oropharynx: She has a partial upper denture, remaining teeth in good repair. No intraoral lesions. Mucous membranes moist. Neck: No lymphadenopathy, thyromegaly, or masses. Heart: Regular rate and rhythm. No murmur noted. Lungs: Clear to auscultation. No rales or wheezes. Breasts: Not examined. Abdomen: Well- healed laparoscopic scars and lower transverse scar from prior surgeries. Bowel sounds are present. Abdomen is obese, soft with diffuse tenderness throughout the right lower quadrant, not well localized. There are no peritoneal signs (rebound, guarding, or rigidity). The remainder of the abdomen is soft and nontender. There are no palpable masses or organomegaly. Genitalia: Not done. Rectal: Not done. Back: No spinous process or CVA tenderness. Extremities: No edema. Neurological: Grossly intact. DIAGNOSTIC STUDIES/LAB DATA: White blood cell count 26,000 with a left shift, hemoglobin 13.5, glucose 174. CRP 57. Lactic acid 1.9. Urinalysis notable for 1+ blood, 3+ leukocyte esterase, 2+ RBCs, and 2+ WBCs on the micro. Lipase is normal and her hCG was negative for . CT scan of the abdomen and pelvis with contrast revealed mild thickening of the terminal ileum (up to 5 mm) and cecum, felt to be most consistent with infectious or inflammatory etiology versus epiploic appendagitis. An apparently normal appendix was seen, measured at 5 mm and without inflammatory changes. There is a 2.2 x 2.8 cm soft tissue nodule anterior to the psoas on the right, possibly consistent with the right ovary. The mesenteric lymph nodes in that region were considered top normal in size. IMPRESSION: Terminal ileitis, unlikely architectural representative of acute appendicitis or acute surgical abdomen. PLAN: The patient will be admitted to the hospitalist service for IV hydration , limited oral intake, and antibiotics. She may benefit from a GI consult. We will follow her lab work and serial abdominal exams. AILIN FAGAN, CECILY [id number]/[facility] #: [id number] [facility] CENTEREllen
[2017-06-30] MEDS ORDERED: NS 0.9% 1000 ML* 1,000 ML IV ONE (00:15)
[2017-06-30] MEDS: NS 0.9% 1000 ML* 1,000 ML IV SCH ×3 (01:13→23:01)
[2017-06-30] MEDS ORDERED: Heparin DRIP 25,000 UNITS(*) 25,000 UNITS/500 ML BAG IV SCH (01:45)
[2017-06-30] MEDS ORDERED: Heparin VIAL(*) 5000 UNITS/ML VIAL (FIVE THOUSAND) IV SCH (02:00)
[2017-06-30 02:53] LABS: Hematocrit 35 % (35-47); Hemoglobin 11.6 g/dl (12.0-16.0); Mean Corpuscular HGB Conc 33 g/dl (31-36); Mean Corpuscular Hemoglobin 30 pg (27-31); Mean Corpuscular Volume 90 fL (80-97); Mean Platelet Volume 7 um3 (7.4-10.4); Red Blood Count 3.92 10^6/ul (4.0-5.4); Red Cell Distribution Width 13 % (10.5-15); White Blood Count 11.7 10^3/ul (3.5-10.8)
[2017-06-30] MEDS: Acetaminophen TAB* 325 MG PO PRN ×4 (03:06→17:28)
[2017-06-30] MEDS: CMCS Melatonin (NF) 3 MG TAB PO PRN (03:14)
[2017-06-30 06:24] LABS: Hematocrit 34 % (35-47); Hemoglobin 11.3 g/dl (12.0-16.0); Mean Corpuscular HGB Conc 34 g/dl (31-36); Mean Corpuscular Hemoglobin 30 pg (27-31); Mean Corpuscular Volume 88 fL (80-97); Mean Platelet Volume 8 um3 (7.4-10.4); Red Blood Count 3.81 10^6/ul (4.0-5.4); Red Cell Distribution Width 13 % (10.5-15); White Blood Count 11.3 10^3/ul (3.5-10.8)
[2017-06-30 06:40] LABS: Calcium 8.3 mg/dL (8.6-10.3); EGFR Non-African American 171.1 (>60); Potassium 3.3 mmol/L (3.5-5.0)
[2017-06-30] MEDS ORDERED: Magnesium Sulfate 2 GM IV* 2 GM/50 ML BAG IVPB ONE (07:27)
[2017-06-30 07:50] LABS: Magnesium 2.1 mg/dL (1.9-2.7)
--- NOTE | 2017-06-30 08:35 | CONSULT ---
Consult Consult: Pt sen and examined yesterday with Cory Diaz. Sever abdo pain for 3 days. RLQ, elevated wbc, decreased appetite, and headaches. Cory Diaz's consult reviewed; labs and radiology reviewed. Imp: terminal ileitis, colitis. Plan: hydration electrolyte management advance diet slowly abx serial abdo exams, if no improvement, or becomes septic, may require r hemicolectomy recommend GI consult echocardiogram recommended
[2017-06-30] MEDS: ZOSYN 3.375 GM Q8H per EXTENDED INFUSION IVPB SCH ×8 (10:53→22:57)
[2017-06-30] MEDS: KCL 10 MEQ/50 ML IVPREMIX* 10 MEQ/50 ML BAG IV SCH ×3 (10:53→15:19)
--- NOTE | 2017-06-30 10:53 | PN ---
Subjective Date of Service: 06/30/17 Interval History: This is a 46 yo female with GERD who presented with c/o RLQ pain. CT suggested terminal ileitis v colitis without evidence of acute appendicitis. She was evaluated by surgery and started on Zosyn. Surgery agrees that there is no evidence of acute appendicitis and no surgical intervention is indicated at this time. Overnight she entered a mostly rate controlled afib. Review of her past records shows that she was seen for afib in 2010 at which point she converted spontaneously. She was seen by Dr May at that time who did not suggest that anticoagulation was necessary due to low CHADS scoring. She reports an allergy to ASA where she gets a full body rash. This am, patient reports that she has a MCCRAY, but her abd pain is improving. She states her appetite is improving and she has no nausea. She does feel palpitations, but denies chest pain. Objective Active Medications: Acetaminophen (Tylenol Tab*) 650 mg PO Q4H PRN PRN Reason: FEVER/PAIN Last Admin: 06/30/17 08:36 Dose: 650 mg Acetaminophen (Tylenol Supp*) 650 mg [place] Q4H PRN PRN Reason: FEVER/PAIN Enoxaparin Sodium (Lovenox(*)) 80 mg SUBCUT Q12H [facility] Hydromorphone HCl (Dilaudid Injic*) 1 mg IV Q2H PRN PRN Reason: PAIN Last Admin: 06/29/17 23:07 Dose: 1 mg Sodium Chloride (Ns 0.9% 1000 Ml*) 1,000 mls @ 100 mls/hr IV PER RATE [facility] Last Admin: 06/30/17 01:13 Dose: 100 mls/hr Piperacillin Sod/Tazobactam (Sod 3.375 gm/ Sodium Chloride) 100 mls @ 25 mls/ hr IVPB Q8H [facility] Last Admin: 06/30/17 00:00 Dose: 25 mls/hr Potassium Chloride (Potassium Chloride 10 Meq/50 Ml Ivpremix*) 10 meq in 50 mls @ 50 mls/hr IV Q1H [facility] Stop: 06/30/17 10:59 Melatonin (Melatonin (Nf)) 3 mg PO BEDTIME PRN; Protocol PRN Reason: Sleep Last Admin: 06/30/17 03:14 Dose: 3 mg Metoprolol Tartrate (Lopressor Tab*) 12.5 mg PO Q12HR [facility] Ondansetron HCl (Zofran Inj*) 4 mg IV Q4H PRN PRN Reason: NAUSEA Last Admin: 06/29/17 12:06 Dose: 4 mg Pharmacy Consult (Zosyn Per Pharmacy*) 1 note FOLLOW UP . PRN PRN Reason: PER PROTOCOL Vital Signs: Temp Pulse Resp BP Pulse Ox 98.0 F 91 16 127/81 97 06/30/17 07:52 06/30/17 07:52 06/30/17 07:52 06/30/17 07:52 06/30/17 07:52 Oxygen Devices in Use Now: None Appearance: Mildly ill appearing middle aged female in NAD. History is obtained through broken [place]er and translation from her daughter. Respiratory: Symmetrical Chest Expansion and Respiratory Effort, Clear to Auscultation Cardiovascular: NL Sounds; No Murmurs; No JVD, RRR Abdominal: - - soft, hypoactive bowel sounds, mild RLQ TTP Extremities: No Edema Skin: No Rash or Ulcers Neurological: Alert and Oriented x 3 Result Diagrams: 06/30/17 05:46 06/30/17 05:51 Additional Lab and Data: . Diagnostic Imaging: CT abd/pelvis - focal inflammation at that base of the cecum/terminal ileum with bowel wall thickening. Normal appearing appendix. Assess/Plan/Problems-Billing Assessment: This is a 46 yo female with GERD and paroxysmal afib who presents with acute RLQ abd pain, admitted with what looks like an infectious colitis. - Patient Problems (1) Infectious colitis Comment: Focal inflammation of the cecum/terminal ileitis Improved leukocytosis and pain with abx Appreciate surgical consultation Reviewed case with GI, Dr Flores, who agrees outpt colonoscopy would be helpful but no acute recommendations, will refer to GI at discharge No personal h/o inflammatory bowel dz, possible history in her sister - she is responding to treatment for infectious colitis Cont Zosyn (2) Paroxysmal a-fib Comment: Entered afib overnight Review of history indicates she has a h/o paroxysmal afib Will replace K/Mg and start low dose BB Heparin drip started overnight, transition to Lovenox today, she likely does not require care home anticoagulation Will repeat an echo (last from 2010 which was nl at that time) (3) GERD (gastroesophageal reflux disease) (4) Full code status (5) DVT prophylaxis Comment: Lovenox Status and Disposition: Inpatient. Anticipate dc in 1-2d
[2017-06-30] MEDS: Enoxaparin(*) 80 MG/0.8 ML SYR SUBCUT SCH ×2 (10:54→22:57)
[2017-06-30] MEDS: Metoprolol Tartrate TAB* 25 MG PO SCH ×2 (10:55→20:42)
[2017-06-30] MEDS: HYDROmorphone INJ* 1 MG/ML CARPUJECT SYRINGE IV PRN (11:06)
--- NOTE | 2017-06-30 11:14 | PN ---
Progress Note - Progress Note Date of Service: 06/30/17 SOAP: Subjective: Patient seen and examined at bedside. Daughter is present, helping with translating since patient is primarily Monegasque speaking. Reports doing better, no abdominal pain. C/o headaches, has hx migraines in the past. Denies Nausea, vomiting, fever or chills. Objective: Awake and alert, comfortable in bed, in NAD. VSS, afebrile, HR ~ 90s Abdomen soft, NT, ND. No guarding or rigidity. No rebound tenderness. Assessment: A 46 y/o female with resolving RLQ abdominal pain, with CT findings consistent with terminal ileitis, now with palpitation. Plan: Echo and palpitations eval per medicine. No surgical concerns at this time. Likely infectious ileitis since improvement with Abx Will F/U during this admission.
[2017-06-30] MEDS ORDERED: KCL 10 MEQ/50 ML IVPREMIX* 10 MEQ/50 ML BAG ONE (15:13)
[2017-07-01] MEDS: Acetaminophen TAB* 325 MG PO PRN ×2 (03:37→09:48)
[2017-07-01] MEDS: HYDROmorphone INJ* 1 MG/ML CARPUJECT SYRINGE IV PRN (05:39)
[2017-07-01 09:30] LABS: Hematocrit 33 % (35-47); Hemoglobin 11.2 g/dl (12.0-16.0); Mean Corpuscular HGB Conc 34 g/dl (31-36); Mean Corpuscular Hemoglobin 30 pg (27-31); Mean Corpuscular Volume 88 fL (80-97); Mean Platelet Volume 8 um3 (7.4-10.4); Red Blood Count 3.79 10^6/ul (4.0-5.4); Red Cell Distribution Width 13 % (10.5-15); White Blood Count 8.3 10^3/ul (3.5-10.8)
[2017-07-01] MEDS: ZOSYN 3.375 GM Q8H per EXTENDED INFUSION IVPB SCH ×6 (09:33→23:42)
[2017-07-01] MEDS: Metoprolol Tartrate TAB* 25 MG PO SCH (09:34)
[2017-07-01] MEDS: NS 0.9% 1000 ML* 1,000 ML IV SCH ×2 (09:40→23:47)
[2017-07-01 09:47] LABS: BUN/Creatinine Ratio 23.8 (8-20); Calcium 8.7 mg/dL (8.6-10.3); EGFR Non-African American 161.7 (>60); Magnesium 2.1 mg/dL (1.9-2.7); Potassium 3.5 mmol/L (3.5-5.0)
[2017-07-01] MEDS ORDERED: Simethicone TAB* 80 MG TAB.CHEW PO PRN (10:04)
--- NOTE | 2017-07-01 10:12 | PN ---
Subjective Date of Service: 07/01/17 Interval History: Patient converted from afib to SR overnight. Sinus arnol this am. She denies palpitations, CP or SOB. She is having some abd pain and diarrhea this am. No vomiting, but nauseous. No blood in her diarrhea. Poor appetite. She has an assoc MCCRAY this am after receiving Dilaudid for her abd pain. Objective Active Medications: Acetaminophen (Tylenol Tab*) 650 mg PO Q4H PRN PRN Reason: FEVER/PAIN Last Admin: 07/01/17 09:48 Dose: 650 mg Enoxaparin Sodium (Lovenox(*)) 80 mg SUBCUT Q12H [facility] Last Admin: 06/30/17 22:57 Dose: 80 mg Sodium Chloride (Ns 0.9% 1000 Ml*) 1,000 mls @ 100 mls/hr IV PER RATE [facility] Last Admin: 07/01/17 09:40 Dose: 100 mls/hr Piperacillin Sod/Tazobactam (Sod 3.375 gm/ Sodium Chloride) 100 mls @ 25 mls/ hr IVPB Q8H [facility] Last Admin: 07/01/17 09:33 Dose: 25 mls/hr Melatonin (Melatonin (Nf)) 3 mg PO BEDTIME PRN; Protocol PRN Reason: Sleep Last Admin: 06/30/17 03:14 Dose: 3 mg Metoprolol Tartrate (Lopressor Tab*) 12.5 mg PO Q12HR [facility] Last Admin: 07/01/17 09:34 Dose: Not Given Morphine Sulfate (Morphine Inj (Syringe)*) 2 mg IV Q4H PRN PRN Reason: PAIN - MILD Ondansetron HCl (Zofran Inj*) 4 mg IV Q4H PRN PRN Reason: NAUSEA Last Admin: 06/29/17 12:06 Dose: 4 mg Pharmacy Consult (Zosyn Per Pharmacy*) 1 note FOLLOW UP . PRN PRN Reason: PER PROTOCOL Simethicone (Mylicon Tab*) 80 mg PO Q6H PRN PRN Reason: gas Vital Signs: Temp Pulse Resp BP Pulse Ox 97.8 F 53 17 125/65 93 07/01/17 07:30 07/01/17 07:30 07/01/17 07:30 07/01/17 07:30 07/01/17 07:30 Oxygen Devices in Use Now: None Appearance: Ill appearing middle aged female in NAD. Accompanied by her daughter who provides some translation. Respiratory: Symmetrical Chest Expansion and Respiratory Effort, Clear to Auscultation Cardiovascular: NL Sounds; No Murmurs; No JVD, RRR Abdominal: - - soft, hypoactive BS. Mild RLQ TTP Extremities: No Edema Skin: No Rash or Ulcers Neurological: Alert and Oriented x 3 Result Diagrams: 07/01/17 09:15 07/01/17 09:15 Additional Lab and Data: . Microbiology and Other Data: Microbiology 06/29/17 17:29 Blood Culture - Preliminary Blood Venous No Growth Day 1 06/29/17 13:46 Aerobic Blood Culture - Preliminary Blood Venous No Growth Day 1 Anaerobic Blood Culture - Preliminary No Growth Day 1 Diagnostic Imaging: CT abd/pelvis - focal inflammation at that base of the cecum/terminal ileum with bowel wall thickening. Normal appearing appendix. Assess/Plan/Problems-Billing Assessment: This is a 46 yo female with GERD and paroxysmal afib who presents with acute RLQ abd pain, admitted with what looks like an infectious colitis. - Patient Problems (1) Infectious colitis Comment: Focal inflammation of the cecum/terminal ileitis Improved leukocytosis and pain with abx Appreciate surgical consultation Reviewed case with GI, Dr Flores, who agrees outpt colonoscopy would be helpful but no acute recommendations, will refer to GI at discharge No personal h/o inflammatory bowel dz, possible history in her sister - she is responding to treatment for infectious colitis Cont Zosyn (2) Paroxysmal a-fib Comment: Converted back to NSR Likely prompted by acute illness and hypokalemia/hypomagnesemia CHADSVASC score of 1, only for female gender Do not believe detention AC is necessary Cont telemetry monitoring TTE ordered (3) GERD (gastroesophageal reflux disease) (4) Full code status (5) DVT prophylaxis Comment: Lovenox Status and Disposition: Inpatient. Anticipate dc in 1-2d
[2017-07-01] MEDS: Enoxaparin(*) 40 MG/0.4 ML SYR SUBCUT SCH (11:57)
[2017-07-01] MEDS: Morphine INJ* 2 MG/ML 1 ML SYRINGE (TWO MG - NEW SYRINGE VERSION) IV PRN (11:57)
[2017-07-01] MEDS: Ondansetron INJ* 2 MG/ML VIAL IV PRN (13:50)
[2017-07-01] MEDS ORDERED: Naproxen TAB* 250 MG PO ONE (15:17)
[2017-07-01] MEDS: CMCS Melatonin (NF) 3 MG TAB PO PRN (20:55)
[2017-07-02] MEDS: Morphine INJ* 2 MG/ML 1 ML SYRINGE (TWO MG - NEW SYRINGE VERSION) IV PRN (01:13)
[2017-07-02 07:37] VITALS: BP 139/67
[2017-07-02] MEDS: ZOSYN 3.375 GM Q8H per EXTENDED INFUSION IVPB SCH ×2 (08:13)
[2017-07-02] MEDS: NS 0.9% 1000 ML* 1,000 ML IV SCH (08:16)
--- NOTE | 2017-07-02 11:24 | DS ---
CC: Dr. Swanson; Dr. Flores * DISCHARGE SUMMARY: DATE OF ADMISSION: 06/29/17 DATE OF DISCHARGE: 07/02/17 PRIMARY CARE PROVIDER: Dr. Swanson. CONSULTING SURGEON: Dr. Bahena. CONSULTING KILN TENDER: Dr. Flores. DISCHARGING PROVIDER: CECILY Kumar SUPERVISING PHYSICIAN: Dr. Miguel Aldridge * DICTATED BY CECILY KUMAR) PRIMARY DISCHARGE DIAGNOSES: 1. Infectious colitis - discharged with 7 additional days of Cipro and Flagyl. 2. Paroxysmal atrial fibrillation - sinus rhythm at the time of discharge. SECONDARY DISCHARGE DIAGNOSIS: Gastroesophageal reflux disease. DISCHARGE MEDICATIONS: 1. Cipro 500 mg p.o. twice daily. 2. Ibuprofen 200 mg p.o. q.4 hours as needed for pain or fever. 3. Flagyl 500 mg p.o. t.i.d. x7 days. Medication changes: 1. Cipro x7 days. 2. Flagyl x7 days. HOSPITAL IMAGIN. Chest x-ray shows questionable pulmonary edema. 2. Abdominal x-ray shows no acute pathology. 3. CT of the abdomen and pelvis shows some focal inflammatory change at the base of the cecum with mild wall thickening of the terminal ileum. The appendix appears to be normal. No other acute pathology noted. HOSPITAL COURSE: This is a pleasant 46-year-old Romanian-speaking female, who presented to the emergency department with complaints of right lower quadrant abdominal pain. The patient reported associated chills. No significant amount of diarrhea at the time of admission, but she did have associated nausea and vomiting with poor appetite. She noted no associated headache. Initial labs showed significant leukocytosis with a white blood cell count of 26,000. Initial lactate of 1.9. Comprehensive metabolic panel was largely unremarkable. The patient underwent CT scan of the abdomen and pelvis, which showed some focal inflammatory change at the terminal ileum and base of the cecum, but the appendix appeared to be normal. Based on the location of her pain and inflammatory change near the appendix, Surgery was asked to evaluate the patient. They agreed with Radiology findings that the appendix appeared to be normal. The patient was empirically treated with Zosyn. Again, due to the location of the inflammation, the possibility of this being an inflammatory colitis was brought up. The patient really does not give any personal history that would be suggestive of inflammatory bowel disease, but states that her sister may have it. The patient's leukocytosis improved with antibiotics. She remained afebrile throughout her hospital stay. She did have a few episodes of diarrhea, but no significant amounts of blood. The patient's abdominal pain improved throughout her clinical course and her nausea and vomiting eventually resolved. She was able to tolerate near normal diet at the time of discharge. Of note, the patient entered atrial fibrillation during her hospital stay. She was hypokalemic and hypomagnesemic at the time. Review of prior history indicates the patient had one other episode of atrial fibrillation for which she was admitted several years ago. The patient had spontaneously converted at that time. She had seen Dr. Pineda in followup, who did not recommend anticoagulation due to her low CHADS score. During this hospitalization, the patient's electrolytes were replaced and she was started on a low dose beta- tutu. She again spontaneously converted back to a sinus rhythm. This brief episode of atrial fibrillation was likely due to her acute illness and electrolyte abnormalities. Her CHADS-VASc score is only 1, scoring only for a female gender, but has no other risk factors and for this reason, would not recommend long-term anticoagulation. DISPOSITION AND FOLLOWUP PLAN: The patient is being discharged to home with 7 additional days of Cipro and Flagyl. Due to the focality of the inflammatory changes noted on CT, would recommend an outpatient colonoscopy in approximately 2 to 4 weeks. This was discussed briefly with Dr. Flores, who is in agreement. The patient should otherwise follow up with her primary care provider within the next week and recommended that she maintain a soft bland diet until her symptoms have completely resolved. CECILY KUMAR [id number]/[facility] #: [id number] GARNET HEALTHEllen
[2017-07-02] MEDS: Enoxaparin(*) 40 MG/0.4 ML SYR SUBCUT SCH (11:50)
== END 2017-07-02 13:00 | disposition home or self-care (01) | DRG 249 ==
LOC: ED 20:11 → MED 06-29 10:23
PROVIDERS: ADMIT Internal Medicine; ATTEND Internal Medicine
DX: A09 Infectious gastroenteritis and colitis, unspecified (principal); E83.42 Hypomagnesemia; Z68.41 Body mass index [BMI] 40.0-44.9, adult; I48.0 Paroxysmal atrial fibrillation; K21.9 Gastro-esophageal reflux disease without esophagitis; E87.6 Hypokalemia; E66.9 Obesity, unspecified; Z79.1 Long term (current) use of non-steroidal anti-inflammatories (NSAID); Z88.6 Allergy status to analgesic agent
CPT/HCPCS: 36415; 71010; 72192; 74000; 74160; 80048; 80053; 81003; 81015; 83605; 83690; 83735; 84520; 84702; 85025; 85610; 85730; 86140; 87040; 87077; 87086; 87150; 87205; 93005; A9270-GY; J0696; J1170; J1644; J1650; J2270; J2405; J2543; J3475; J3480; Q9967

== ENCOUNTER 2019-04-12 04:32 | Emergency (ER) | payer OTHER ==
[2019-04-12] MEDS ORDERED: NS 0.9% 1000 ML** 1,000 ML IV ONE (05:41)
[2019-04-12] MEDS ORDERED: Acetaminophen TAB* 325 MG PO ONE (05:59)
[2019-04-12] MEDS ORDERED: Ondansetron INJ* 2 MG/ML VIAL IV ONE (05:59)
[2019-04-12 06:22] LABS: ABS Lymphocytes 0.6 10^3/ul (1.0-4.8); ABS Monocytes 0.5 10^3/ul (0-0.8); ABS Neutrophils 11.6 10^3/ul (1.5-7.7); Hematocrit 40 % (35-47); Hemoglobin 13.5 g/dL (12.0-16.0); Lymphocyte % 4.6 %; Mean Corpuscular HGB Conc 34 g/dL (31-36); Mean Corpuscular Hemoglobin 30 pg (27-31); Mean Corpuscular Volume 90 fL (80-97); Mean Platelet Volume 7.3 fL (7.4-10.4); Platelet Count 225 10^3/uL (150-450); Red Blood Count 4.47 10^6 /uL (3.70-4.87); Red Cell Distribution Width 13 % (10-15); White Blood Count 12.7 10^3/uL (3.5-10.8)
--- NOTE | 2019-04-12 06:32 | ED ---
Complex/Multi-Sys Presentation - HPI Summary HPI Summary: Pt. is a 48 y.o female who presents to the ER with multiple complaints. Pt. states since yesterday she has had a fever, swollen lymphnodes, sore throat, headache, nausea and epigastric pain. Past medical hx of HTN, paroxysmal afib. Pt. denies rash, tick bites, diarrhea, cough, cp, sob. Sxs are moderate in severity. No current modifying factors. - History Of Current Complaint Chief Complaint: EDAbdPain Time Seen by Provider: 04/12/19 05:35 Hx Obtained From: Patient, Family/Fundraising Director - Allergies/Home Medications Allergies/Adverse Reactions: Allergies Allergy/AdvReac Type Severity Reaction Status Date / Time aspirin Allergy Rash Verified 04/12/19 05:36 caffeine AdvReac Palpitation Verified 04/12/19 05:37 s PMH/Surg Hx/FS Hx/Imm Hx Previously Healthy: Yes Endocrine/Hematology History: Denies: Hx Diabetes - daughter states pt is pre diabetic Cardiovascular History: Reports: Hx Cardiac Arrest - pts daughter states that in 2011 she had a small cardiac arrest, Hx Hypertension GI History: Reports: Hx Gall Bladder Disease - had choly in 2010, Hx Gastroesophageal Reflux Disease History: Reports: Hx Kidney Stones Sensory History: Denies: Hx Contacts or Glasses, Hx Hearing Aid Opthamlomology History: Denies: Hx Contacts or Glasses - Surgical History Surgery Procedure, Year, and Place: cholycystectomy in 2010, hysterectomy in - Immunization History Date of Tetanus Vaccine: unknown Infectious Disease History: No Infectious Disease History: Denies: Hx Shingles, Traveled Outside the [place] in Last 30 Days - Family History Known Family History: Positive: None, Other - [place], Non-Contributory - Social History Occupation: Unemployed Lives: With Family Alcohol Use: None Hx Substance Use: No Substance Use Type: Reports: None Hx Tobacco Use: No Smoking Status (MU): Never Smoked Tobacco Review of Systems Positive: Fever, Chills Eyes: Negative Positive: Sore Throat Cardiovascular: Negative Negative: Palpitations, Chest Pain Respiratory: Negative Negative: Shortness Of Breath, Cough Positive: Abdominal Pain, Nausea. Negative: Vomiting, Diarrhea Genitourinary: Negative Negative: dysuria Positive: Myalgia Skin: Negative Negative: Rash Positive: Headache. Negative: Weakness, Paresthesia, Numbness All Other Systems Reviewed And Are Negative: Yes Physical Exam Triage Information Reviewed: Yes Vital Signs On Initial Exam: Initial Vitals Temp Pulse Resp BP Pulse Ox 102.1 F 78 16 129/80 97 04/12/19 04:34 04/12/19 04:34 04/12/19 04:34 04/12/19 04:34 04/12/19 04:34 Vital Signs Reviewed: Yes Appearance: Positive: Pain Distress - Pt. lying in bed, appears to be in pain but nontoxic. Family member present. Pt. tearful at times. Skin: Positive: Warm, Dry Head/Face: Positive: Normal Head/Face Inspection Eyes: Positive: Normal, EOMI, MARC, Conjunctiva Clear ENT: Positive: Other - Oral pharynx injected with minimal tonsilar edema. Uvula is midline without deviation. No muffled voice or trismus. TM unremarkable. Neck: Positive: Supple, Other: - Painful right anterior lymphadenopathy.. Negative: Nuchal Rigidity Respiratory/Lung Sounds: Positive: Clear to Auscultation, Breath Sounds Present. Negative: Rales, Rhonchi, Wheezes Cardiovascular: Positive: Normal, RRR Abdomen Description: Positive: Nontender, Soft Musculoskeletal: Positive: Normal, Strength/ROM Intact Neurological: Positive: Normal, Alert, Oriented to Person Place, Time, CN Intact II-III Psychiatric: Positive: Affect/Mood Appropriate Diagnostics - Vital Signs Vital Signs Temp Pulse Resp BP Pulse Ox 04/12/19 05:01 74 97 04/12/19 04:50 99.6 F 73 144/75 96 04/12/19 04:49 76 98 04/12/19 04:34 102.1 F 78 16 129/80 97 - Laboratory Lab Results: Lab Results 04/12/19 Range/Units 06:10 WBC 12.7 H (3.5-10.8) 10^3/uL RBC 4.47 (3.70-4.87) 10^6 /uL Hgb 13.5 (12.0-16.0) g/dL Hct 40 (35-47) % MCV 90 (80-97) fL MCH 30 (27-31) pg MCHC 34 (31-36) g/dL RDW 13 (10-15) % Plt Count 225 (150-450) 10^3/uL MPV 7.3 L (7.4-10.4) fL Neut % (Auto) 91.7 % Lymph % (Auto) 4.6 % [place] % (Auto) 3.6 % Eos % (Auto) 0.0 % Baso % (Auto) 0.1 % Absolute Neuts (auto) 11.6 H (1.5-7.7) 10^3/ul Absolute Lymphs (auto) 0.6 L (1.0-4.8) 10^3/ul Absolute Monos (auto) 0.5 (0-0.8) 10^3/ul Absolute Eos (auto) 0.0 (0-0.6) 10^3/ul Absolute Basos (auto) 0.0 (0-0.2) 10^3/ul Absolute Nucleated RBC 0.0 10^3/ul Nucleated RBC % 0.0 Result Diagrams: 04/12/19 06:10 04/12/19 06:10 Lab Statement: Any lab studies that have been ordered have been reviewed, and results considered in the medical decision making process. Complex Multi-Symp Course/Dx Course Of Treatment: Pt. presenting with a main complaint of sore throat and cervical lymphadenopathy. Pt. also with numerous other complaints. Will obtain labs and cardiac workup. Pt. given IV fluids, tylenol and zofran. ECG done at 0558 shows a sinus rhythm of 73bpm, normal axis, flipped t waves in lateral leads, no STEMI, similar to prior tracing. Pt. without CP. CXR is negative for infiltrate per my reading. Labs show mild leukocytosis and elevated CRP. Negative troponin. Negative flu. Rapid strep is positive. WIll treat with amoxicillin. On re-exam pt. is feeling better. Will have her f.u with pcp. To increase fluids and rest. Tylenol for pain and fever as directed. Will return to ER if sxs change or worsen. Pt. understands and agrees with plan. - Diagnoses Provider Diagnoses: Strep pharyngitis Discharge - Sign-Out/Discharge Documenting (check all that apply): Patient Departure Patient Received Moderate/Deep Sedation with Procedure: No - Discharge Plan Condition: Improved Disposition: HOME Prescriptions: Amoxicillin PO (*) [Amoxicillin 500 MG CAP*] 500 mg PO Q12H #20 cap Patient Education Materials: Strep Throat (ED) Referrals: Rosa Swanson MD [Primary Care Provider] - Additional Instructions: Schedule a follow up appointment with your PCP in 2-3 days for recheck Take antibiotic as directed Increase fluids and rest Tylenol for pain and fever as directed Return to ER if symptoms change or worsen - Billing Disposition and Condition Condition: IMPROVED Disposition: Home
[2019-04-12 06:37] LABS: Urine Appearance Clear; Urine Bilirubin Negative (Negative); Urine Blood Negative (Negative); Urine Color Colorless; Urine Glucose Negative (Negative); Urine Ketones Negative (Negative); Urine Nitrite Negative (Negative); Urine Protein Negative (Negative); Urine Specific Gravity 1.001 (1.010-1.030); Urine Urobilinogen Negative (Negative)
[2019-04-12 06:40] LABS: Albumin 4.3 g/dL (3.2-5.2); Albumin/Globulin Ratio 1.2 (1-3); BUN/Creatinine Ratio 19.6 (8-20); C Reactive Protein 19.13 mg/L (<8.01); Calcium 9.2 mg/dL (8.6-10.3); EGFR African American 139.2 (>60); EGFR Non-African American 115.1 (>60); Globulin 3.5 g/dL (2-4); Potassium 3.4 mmol/L (3.5-5.0); Total Bilirubin 0.6 mg/dL (0.2-1.0); Total Protein 7.8 g/dL (6.4-8.9)
[2019-04-12 06:44] LABS: Troponin I 0.01 ng/mL (<0.04)
[2019-04-12 06:48] LABS: HCG Pregnancy 1.54 mIU/mL
[2019-04-12 06:59] LABS: Rapid Strep Molecular POSITIVE (Negative)
[2019-04-12] MEDS ORDERED: Amoxicillin PO (*) 500 MG CAP PO ONE (07:06)
[2019-04-12 07:12] LABS: Influenza A Molecular NEGATIVE (Negative); Influenza B Molecular NEGATIVE (Negative)
[2019-04-12 07:43] VITALS: BP 103/63
--- NOTE | 2019-04-12 13:08 | PN ---
Progress Note - Progress Note Date of Service: 04/12/19 Note: Final radiology read per radiology: IMPRESSION: #. Suggestion of mild pulmonary vascular congestion. R2 Preliminary Imaging Read R2 Pt. without SOB. Treated for strep throat. No change in treatment needed at this time.
== END 2019-04-12 07:45 | disposition home or self-care (01) ==
LOC: ED 04:32
DX: J02.0 Streptococcal pharyngitis (principal); I10 Essential (primary) hypertension; K21.9 Gastro-esophageal reflux disease without esophagitis; Z88.6 Allergy status to analgesic agent; Z86.74 Personal history of sudden cardiac arrest
CPT/HCPCS: 36415; 71045; 80053; 81003; 83605; 83690; 84484; 84702; 85025; 86140; 87040; 87651; 93005; 96361; 96374; 99283; A9270-GY; J2405